=== PATIENT | female | born 1990 | race Caucasian/White ===

== ENCOUNTER 2019-04-14 09:29 | Emergency (ER) | payer MEDICAID, OTHER ==
[~2019-04-14] VITALS: Ht 170.2 cm; Wt 71.7 kg
[2019-04-14 10:25] LABS: Basophils # (auto) 0.1 uL; Basophils % (auto) 0.7 % (0.0-2.0); Eosinophils # (auto) 0.2 uL; Eosinophils % (auto) 2.4 % (0.0-7.0); Hemoglobin 13.4 g/dL (12.2-16.2); Mean Corpuscular Hemoglobin 31.9 pg (28.0-32.0); Mean Corpuscular Hgb Conc. 36.2 g/dL (32.0-36.0); Mean Corpuscular Volume 88.3 fL (80.0-100.0); Monocytes # (auto) 0.5 uL; Neutrophils # (auto) 4.8 uL; Neutrophils % (auto) 55.9 % (37.0-80.0); Platelet Count (auto) 301 10^3/uL (140-450); Red Blood Cells 4.19 10^6/uL (4.0-5.20); Red Cell Distribution Width 12.5 % (11.8-14.3); White Blood Cell 8.7 10^3/uL (4.4-10.8)
[2019-04-14 10:37] LABS: Albumin 3.7 g/dL (3.4-5.0); BUN/Creatinine Ratio 28.1; Calcium 8.4 mg/dL (8.5-10.1); Potassium 3.5 mmol/L (3.5-5.1)
[2019-04-14 10:39] LABS: Bilirubin, Total 0.3 mg/dL (0.2-1.0); Total Protein 7.1 g/dL (6.4-8.2)
[2019-04-14 11:39] LABS: Urine Bacteria NONE SEEN /hpf (None Seen); Urine Blood 2+ /uL (Negative); Urine Specific Gravity 1.011 (1.001-1.035); Urine WBC <1 /hpf (0 - 5)
[2019-04-14] MEDS ORDERED: SODIUM CHLORIDE 0.9% 1,000 ML IV ONE (11:48)
[2019-04-14] MEDS ORDERED: FOLIC ACID 1 MG, MULTIPLE VITAMIN 10 ML, MAGNESIUM SULF SDV 50% 8 MEQ, THIAMINE INJ 100... INJ SCH ×5 (12:00)
[2019-04-14 12:10] VITALS: BP 113/71
== END 2019-04-14 12:21 | disposition home or self-care (01) ==
LOC: ER 09:33
DX: N92.0 Excessive and frequent menstruation with regular cycle (principal); N93.8 Other specified abnormal uterine and vaginal bleeding; Z32.02 Encounter for pregnancy test, result negative
CPT/HCPCS: 36415; 80053; 81001; 81025; 85025